=== PATIENT | male | born 1975 | race American Indian/Alaskan Native ===

== ENCOUNTER 2017-09-16 17:45 | Emergency (ER) | payer SELFPAY ==
[2017-09-17] MEDS ORDERED: BOOSTRIX IM ONE (00:20)
--- NOTE | 2017-09-17 00:24 | Emergency Department Report ---
ED Laceration HPI - HPI Chief Complaint: Extremity Injury, Upper Stated Complaint: FINGER INJURY Time Seen by Provider: 09/16/17 23:56 Occurred When: Before Yesterday Location: Upper Extremity (left index finger) Severity: mild Laceration Symptoms: No Foreign Body Sensation, No Numbness, No Weakness, No Pain Other History: Patient is a 42-year-old presents to the ED complaining of cutting his finger 2 days ago while he was at work. Patient states he has been cleaning the wound and keeping it covered with band aid for the past few days. Patient states wound is closed but wanted to have it looked at. He denies any swelling, pain to the fingertip. He states he does not recall his last tetanus booster. ED Review of Systems ROS: Stated complaint: FINGER INJURY Other details as noted in HPI Constitutional: denies: chills, fever Eyes: denies: eye pain, eye discharge, vision change ENT: denies: ear pain, throat pain Respiratory: denies: cough, shortness of breath, wheezing Cardiovascular: denies: chest pain, palpitations Endocrine: no symptoms reported Gastrointestinal: denies: abdominal pain, nausea, diarrhea Genitourinary: denies: urgency, dysuria Musculoskeletal: denies: back pain, joint swelling, arthralgia Skin: denies: rash, lesions Neurological: denies: headache, weakness, paresthesias Psychiatric: denies: anxiety, depression Hematological/Lymphatic: denies: easy bleeding, easy bruising ED Past Medical Hx - Past Medical History Previous Medical History?: No - Surgical History Past Surgical History?: No - Social History Smoking Status: Current Every Day Smoker Substance Use Type: Alcohol, Other - Medications Home Medications: Home Medications Medication Instructions Recorded Confirmed Last Taken Type Penicillin Vk [Veetids TAB] 250 mg PO QID #40 tablet 05/11/15 Unknown Rx Cephalexin [Keflex] 250 mg PO BID #10 capsule 09/17/17 Unknown Rx Ibuprofen [Motrin] 400 mg PO Q8H #20 tablet 09/17/17 Unknown Rx Laceration Physical Exam - Exam General: Vital signs noted. No distress. Alert and acting appropriately. Wound Length (cm): 0 Laceration Location: Upper Extremity Laceration Exam: No Foreign Body, No Exposed Tendon, Vessel, or Nerve, No Tendon Injury, No Normal Distal CMS ED Course Vital Signs 09/16/17 17:59 Temperature 98.3 F Pulse Rate 87 Respiratory 20 Rate Blood Pressure 110/75 O2 Sat by Pulse 99 Oximetry ED Medical Decision Making - Medical Decision Making 42-year-old male presents with closed healing laceration to the fingertip ED course: Patient received TD booster in ED. Discussed the patient will go home on couple days of antibiotics to prevent infection. I discussed the patient to continue cleaning and keeping, covered up. Vital signs are normal patient is no acute distress. Laceration is closed and well-healed does not need any laceration repair Critical care attestation.: If time is entered above; I have spent that time in minutes in the direct care of this critically ill patient, excluding procedure time. ED Disposition Clinical Impression: Finger abrasion, non-infected Disposition: TO HOME OR SELFCARE Is pt being admited?: No Does the pt Need Aspirin: No Condition: Stable Instructions: Abrasion (ED), Acute Wound Care (ED) Additional Instructions: Make sure to follow up with the primary care physician as discussed. Take all your medications as you've been prescribed. If you have any worsening symptoms or develop new symptoms please return to ED immediately. Prescriptions: Cephalexin [Keflex] 250 mg PO BID #10 capsule Ibuprofen [Motrin] 400 mg PO Q8H #20 tablet Referrals: PRIMARY CARE, [Primary Care Provider] - 3-5 Days [facility] [Outside] - 3-5 Days [facility] [Outside] - 3-5 Days Forms: Work/School Release Form(ED) Time of Disposition: 00:30
[2017-09-17 01:05] VITALS: BP 141/92
== END 2017-09-17 00:30 | disposition home or self-care (01) ==
LOC: ED 17:45
DX: S60.419A Abrasion of unspecified finger, initial encounter (principal); W45.8XXA Other foreign body or object entering through skin, initial encounter; Y93.89 Activity, other specified; Y92.89 Other specified places as the place of occurrence of the external cause; Y99.8 Other external cause status
CPT/HCPCS: 90471; 90715; 99282

== ENCOUNTER 2021-02-01 19:40 | Emergency (ER) | payer SELFPAY ==
--- NOTE | 2021-02-01 21:55 | XRay Report ---
LEFT HAND 3 VIEWS INDICATION / CLINICAL INFORMATION: Left middle finger injury. COMPARISON: None available. FINDINGS: BONES / JOINT(S): No acute fracture or subluxation. No significant arthritis. SOFT TISSUES: I do not identify a radiopaque foreign body. ADDITIONAL FINDINGS: None. Signer Name: Bird Cabrera MD Signed: 02/01/2021 9:51 PM Workstation Name: [id number]
[2021-02-01] MEDS ORDERED: LIDOCAINE-MPF (1%) 10 MG/1 ML VIAL 5 ML INFILTRATI ONE (23:53)
--- NOTE | 2021-02-02 00:25 | Emergency Department Report ---
ED Laceration HPI - HPI Chief Complaint: Wound/Laceration Stated Complaint: FINGER LACERATION Occurred When: Today Location: Upper Extremity Severity: mild Tetanus Status: Up to Date Laceration Symptoms: Yes Pain, No Foreign Body Sensation, No Numbness, No Weakness Other History: 45-year-old male was sharpening his knives at work and accidental ly resulting in a laceration to the finger. Presents multiple complaining of pain and bleeding with a dull dull throbbing fashion symptoms worse with palpation and range of motion. Reports no numbness or tingling. ED Review of Systems ROS: Stated complaint: FINGER LACERATION Other details as noted in HPI Comment: All other systems reviewed and negative ED Past Medical Hx - Past Medical History Previous Medical History?: No - Surgical History Past Surgical History?: No - Social History Smoking Status: Current Every Day Smoker Substance Use Type: Marijuana - Medications Home Medications: Home Medications Medication Instructions Recorded Confirmed Last Taken Type Penicillin Vk [Veetids TAB] 250 mg PO QID #40 tablet 05/11/15 Unknown Rx Ibuprofen [Motrin] 400 mg PO Q8H #20 tablet 09/17/17 Unknown Rx cephALEXin [Keflex] 250 mg PO BID #10 capsule 09/17/17 Unknown Rx Laceration Physical Exam - Exam General: Vital signs noted. No distress. Alert and acting appropriately. Laceration Location: Upper Extremity Full Body Front + Back: 1 - 1.5 cm linear laceration to the left third digit Laceration Exam: Yes Normal Distal CMS, No Foreign Body, No Exposed Tendon, V essel, or Nerve, No Tendon Injury ED Course Vital Signs 02/01/21 21:13 Temperature 98.8 F Pulse Rate 88 Respiratory 16 Rate Blood Pressure 134/78 [Left] O2 Sat by Pulse 100 Oximetry - Laceration /Wound Repair Left Finger Wound Location: upper extremity Irrigated w/ Saline (ccs): 20 Anesthesia: 1% Lidocaine Wound Debrided: minimal Wound Repaired With: sutures Suture Size/Type: 4:0 Number of Sutures: 2 Sterile Dressing Applied?: Yes Critical care attestation.: If time is entered above; I have spent that time in minutes in the direct care of this critically ill patient, excluding procedure time. ED Disposition Clinical Impression: Finger laceration Disposition: DC-01 TO HOME OR SELFCARE Is pt being admited?: No Does the pt Need Aspirin: No Condition: Stable Instructions: Sutures, Ethel, or Adhesive Wound Closure, Wound Care, Adult, Sutured Wound Care Additional Instructions: Please follow-up to have the sutures to be evaluated for possible removal in 7 to 10 days Referrals: MATTHEW MALONE MD [Primary Care Provider] - 3-5 Days [facility] [Provider Group] - 3-5 Days
[2021-02-02 00:58] VITALS: BP 115/62
== END 2021-02-02 01:00 | disposition home or self-care (01) ==
LOC: ED 19:40
DX: S61.215A Laceration without foreign body of left ring finger without damage to nail, initial encounter (principal); F17.200 Nicotine dependence, unspecified, uncomplicated; F12.90 Cannabis use, unspecified, uncomplicated; Z79.899 Other long term (current) drug therapy; W26.0XXA Contact with knife, initial encounter; Y93.89 Activity, other specified; Y92.89 Other specified places as the place of occurrence of the external cause; Y99.8 Other external cause status

== ENCOUNTER 2021-06-06 23:40 | Emergency (ER) | payer SELFPAY ==
[2021-06-07] MEDS ORDERED: ACETAMINOPHEN 500 MG TAB PO ONE (01:01)
[2021-06-07] MEDS ORDERED: TETANUS,DIPH,PERTUSS(ACELL) VACCINE 0.5 ML SYRINGE IM ONE (01:01)
[2021-06-07] MEDS ORDERED: IBUPROFEN 600 MG TAB PO ONE (01:01)
[2021-06-07] MEDS ORDERED: LIDOCAINE (1%) 10 MG/1 ML VIAL 20 ML MDV INFILTRATI ONE (01:01)
--- NOTE | 2021-06-07 03:03 | Emergency Department Report ---
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 Patient states that he is not up-to-date with his tetanus vaccinations. Patient states that the bleeding is not controlled. Patient denies numbness and tingling or weakness of right hand, dizziness, syncope, fall, nausea and vomiting, change in vision, diaphoresis, chest pain or sh ortness of breath. 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 denies: loss of feeling/numbness, suspect foreign body present, unable to move injured part, weakness followed by dizziness, nausea/vomiting, fever Treatments Prior to Arrival: bandage - Related Data Previous Rx's Medication Instructions Recorded Last Taken Type Penicillin Vk [Veetids TAB] 250 mg PO QID #40 tablet 05/11/15 Unknown Rx Ibuprofen [Motrin] 400 mg PO Q8H #20 tablet 09/17/17 Unknown Rx cephALEXin [Keflex] 250 mg PO BID #10 capsule 09/17/17 Unknown Rx Ibuprofen [Motrin] 800 mg PO Q8HR PRN #30 tablet 06/07/21 Unknown Rx cephALEXin [Keflex] 500 mg PO Q8HR #30 cap 06/07/21 Unknown Rx Allergies Allergy/AdvReac Type Severity Reaction Status Date / Time No Known Allergies Allergy Verified 05/11/15 03:07 ED Review of Systems ROS: Stated complaint: CUT FINGERS AT WORK Other details as noted in HPI Constitutional: denies: chills, fever Eyes: denies: eye pain, eye discharge, vision change ENT: denies: ear pain, throat pain Respiratory: denies: cough, shortness of breath, wheezing Cardiovascular: denies: chest pain, palpitations Endocrine: no symptoms reported Gastrointestinal: denies: abdominal pain, nausea, diarrhea Genitourinary: denies: urgency, dysuria Musculoskeletal: arthralgia (Painful right index and middle fingers due to bleeding laceration wounds). denies: back pain, joint swelling Skin: other (Bleeding, distal right middle and right index finger laceration wound). denies: rash, lesions Neurological: denies: headache, weakness, paresthesias Psychiatric: denies: anxiety, depression Hematological/Lymphatic: denies: easy bleeding, easy bruising ED Past Medical Hx - Past Medical History Previous Medical History?: No - Surgical History Past Surgical History?: No - Social History Smoking Status: Current Every Day Smoker Substance Use Type: Marijuana - Medications Home Medications: Home Medications Medication Instructions Recorded Confirmed Last Taken Type Penicillin Vk [Veetids TAB] 250 mg PO QID #40 tablet 05/11/15 Unknown Rx Ibuprofen [Motrin] 400 mg PO Q8H #20 tablet 09/17/17 Unknown Rx cephALEXin [Keflex] 250 mg PO BID #10 capsule 09/17/17 Unknown Rx Ibuprofen [Motrin] 800 mg PO Q8HR PRN #30 tablet 06/07/21 Unknown Rx cephALEXin [Keflex] 500 mg PO Q8HR #30 cap 06/07/21 Unknown Rx ED Physical Exam - General Limitations: No Limitations General appearance: alert, in no apparent distress - Head Head exam: Present: atraumatic, normocephalic, normal inspection - Eye Eye exam: Present: normal appearance, PERRL, EOMI Pupils: Present: normal accommodation - ENT ENT exam: Present: normal exam, normal orophraynx, mucous membranes moist, TM's normal bilaterally, normal external ear exam - Neck Neck exam: Present: normal inspection, full ROM - Respiratory Respiratory exam: Present: normal lung sounds bilaterally. Absent: respiratory distress, wheezes, rales, rhonchi, chest wall tenderness, accessory muscle use, decreased breath sounds, prolonged expiratory - Cardiovascular Cardiovascular Exam: Present: regular rate, normal rhythm, normal heart sounds. Absent: systolic murmur, diastolic murmur, rubs, gallop - GI/Abdominal GI/Abdominal exam: Present: soft, normal bowel sounds. Absent: tenderness, guarding, rebound, hypoactive bowel sounds - Extremities Exam Extremities exam: Present: normal inspection, full ROM, tenderness (Palpable tenderness of distal right index and middle fingers due to bleeding 7 cm and 4 cm laceration wound respectively), normal capillary refill. Absent: pedal edema, joint swelling, calf tenderness - Back Exam Back exam: Present: normal inspection, full ROM. Absent: tenderness, CVA tenderness (R), muscle spasm, paraspinal tenderness, vertebral tenderness, rash noted - Neurological Exam Neurological exam: Present: alert, oriented X3, CN II-XII intact, normal gait, reflexes normal - Psychiatric Psychiatric exam: Present: normal affect, normal mood - Skin Skin exam: Present: warm, dry, normal color, other (Bleeding distal right index finger 7 cm laceration and distal right middle finger 4 cm laceration wound). Absent: rash - Laceration /Wound Repair Right Distal Finger Wound Location: upper extremity (Distal right index finger laceration) Wound Length (cm): 7 Wound's Depth, Shape: superficial, linear Wound Explored: contaminated Irrigated w/ Saline (ccs): 300 Betadine Prep?: Yes Anesthesia: 1% Lidocaine Volume Anesthetic (ccs): 7 Wound Debrided: extensive Wound Repaired With: sutures Suture Size/Type: 4:0, proline Number of Sutures: 14 Layer Closure?: No Sterile Dressing Applied?: Yes Progress: The finger laceration wound was extensively debrided with normal saline s olutions and Betadine. 1% lidocaine solution was injected around the wound as a digital block for local anesthesia. The wound was then approximated and sutured per protocol after anesthesia was achieved. The wound was then dressed appropriately. Patient tolerated the procedure well. Right Distal Hand Wound Location: upper extremity (Distal right middle finger laceration wound) Wound Length (cm): 4 Wound's Depth, Shape: superficial, linear Wound Explored: contaminated Irrigated w/ Saline (ccs): 200 Betadine Prep?: Yes Anesthesia: 1% Lidocaine Volume Anesthetic (ccs): 5 Wound Debrided: extensive Wound Repaired With: sutures Suture Size/Type: 4:0, proline Number of Sutures: 8 Layer Closure?: No Sterile Dressing Applied?: Yes Progress: The finger laceration wound was extensively debrided with normal saline solutions and Betadine. 1% lidocaine solution was injected around the wound as a digital block for local anesthesia. The wound was then approximated and sutured per protocol after anesthesia was achieved. The wound was then dressed appropriately. Patient tolerated the procedure well. 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 Patient states that he is not up-to-date with his tetanus vaccinations. Patient states that the bleeding is not controlled. In the ED, patient is alert and oriented x3 and is not in any distress. Patient was treated for pain in the ED and also received booster tetanus vaccination in the ED. The laceration wounds work extensively debrided with normal saline solutions and Betadine. 1% lidocaine solution were then injected around the wound as a digital block. When anesthesia was fully achieved, the wound was then approximated per protocol using Prolene 4-0 sutures. The patient tolerated the procedure well. The wounds were then dressed appropriately and the patient will discharge home on pain medication and prophylactic antibiotics, and was advised to follow-up with his primary care physician in 7 to 10 days for reevaluation or return to the ED immediately if symptoms get worse. Patient was also advised to return to the ED or to his primary care physician in 12 to 14 days for suture removal. - Differential Diagnosis Finger lacerations; puncture wound; finger injuries Critical care attestation.: If time is entered above; I have spent that time in minutes in the direct care of this critically ill patient, excluding procedure time. ED Disposition Clinical Impression: Laceration of right middle finger w/o foreign body w/o damage to nail Qualifiers: Encounter type: initial encounter Qualified Code(s): S61.212A - Laceration without foreign body of right middle finger without damage to nail, initial encounter Laceration of right index finger w/o foreign body w/o damage to nail Qualifiers: Encounter type: initial encounter Qualified Code(s): S61.210A - Laceration without foreign body of right index finger without damage to nail, initial encounter Disposition: 01 HOME / SELF CARE / HOMELESS Is pt being admited?: No Does the pt Need Aspirin: No Condition: Stable Instructions: Laceration Care, Adult, [id number], Sutured Wound Care, [id number] Additional Instructions: Take medication with food, drink plenty of fluids and follow-up with your primary care physician in 7 to 10 days for reevaluation. Return to the ED immediately if symptoms get worse. Otherwise return to the ED or to your primary care physician in 12 to 14 days for suture removal. Prescriptions: cephALEXin [Keflex] 500 mg PO Q8HR #30 cap Ibuprofen [Motrin] 800 mg PO Q8HR PRN #30 tablet PRN Reason: Pain , Severe (7-10) Referrals: [facility] [Provider Group] - 7-10 days Forms: Work/School Release Form(ED) Time of Disposition: 03:10 Print Language: [id number]
[2021-06-07 03:13] VITALS: BP 132/91
== END 2021-06-07 04:08 | disposition home or self-care (01) ==
LOC: ED 23:40
DX: S61.210A Laceration without foreign body of right index finger without damage to nail, initial encounter (principal); S61.212A Laceration without foreign body of right middle finger without damage to nail, initial encounter; F17.200 Nicotine dependence, unspecified, uncomplicated; F12.90 Cannabis use, unspecified, uncomplicated; Z79.899 Other long term (current) drug therapy; W26.8XXA Contact with other sharp object(s), not elsewhere classified, initial encounter; Y93.89 Activity, other specified; Y92.89 Other specified places as the place of occurrence of the external cause; Y99.8 Other external cause status
CPT/HCPCS: 90471; 90715; 99282